=== PATIENT | female | born 1990 | race African-American/Black ===

== ENCOUNTER 2016-10-19 19:15 | Emergency (ER) | payer SELFPAY ==
[~2016-10-19] VITALS: Ht 170.2 cm; Wt 70.0 kg
[~2016-10-19 19:15] MED LIST: OXYC-360 PO; Z.0.NO CURRENT MEDS
[2016-10-19 19:17] VITALS: BP 136/81; PULSE 80; RESP 18; TEMP 98; O2SAT 100
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
--- NOTE | 2016-10-19 19:59 | RADRPT ---
EXAM DATE/TIME: 10/19/2016 19:45 [facility] COMPARISON: No previous studies available for comparison. INDICATIONS : Patient states she fell and landed on left side and is having left flank pain. Rib pain is in lower l eft ribs. MEDICAL HISTORY : None. SURGICAL HISTORY : None. ENCOUNTER: Initial ACUITY: 4 - 6 days PAIN SCORE: 4/10 LOCATION: Left Ribs FINDINGS: No definite displaced rib fractures or pneumothorax is identified. CONCLUSION: No definite displaced rib fractures. Kyung Colindres MD on October 19, 2016 at 19:57 Board Certified Radiologist. This report was verified electronically.
[2016-10-19] MEDS ORDERED: ROBA500T PO (20:02)
[2016-10-19] MEDS ORDERED: NAPR500T PO (20:02)
== END 2016-10-19 20:45 | disposition home or self-care (01) ==
LOC: NEPD 19:15
DX: R07.81 Pleurodynia (principal); F17.210 Nicotine dependence, cigarettes, uncomplicated; V86.59XA Driver of other special all-terrain or other off-road motor vehicle injured in nontraffic accident, initial encounter; Y93.55 Activity, bike riding; Y92.9 Unspecified place or not applicable; Y99.9 Unspecified external cause status
CPT/HCPCS: 71101; 99283